=== PATIENT | male | born 1970 | race Caucasian/White ===

== ENCOUNTER 2018-09-30 10:30 | Emergency (ER) | payer OTHER ==
[2018-09-30] MEDS ORDERED: AZITHROMYCIN 250 MG TAB ONE (11:01)
--- NOTE | 2018-09-30 11:34 | EDPHYS ---
Physician Documentation [facility] Name: Cuong Laws Age: 48 yrs Sex: Male : 1970 Arrival Date: 09/30/2018 Time: 10:35 Bed 12 Private MD: ED Physician Jhony Hernandez HPI: 09/30 10:44 This 48 yrs old Male presents to ER via Ambulatory with complaints of Sinus leia Congestion, Cough. 10:44 The patient or guardian reports airway noise, cough, flu symptoms. Onset: The elia symptoms/episode began/occurred yesterday. Severity of symptoms: At their worst the symptoms were mild, moderate, in the emergency department the symptoms are unchanged. Modifying factors: The symptoms are alleviated by nothing, the symptoms are aggravated by nothing. Associated signs and symptoms: The patient has no apparent associated signs or symptoms. The patient has not experienced similar symptoms in the past. Historical: - Allergies: 10:39 No Known Allergies; sg - Home Meds: 10:39 None [Active]; sg - PMHx: 10:39 None; sg - PSHx: 10:39 Cholecystectomy; Knee surgery; sg - Immunization history:: Adult Immunizations not up to date. - Social history:: Smoking status: . - Family history:: not pertinent. - Ebola Screening: : Patient negative for fever greater than or equal to 101.5 degrees Fahrenheit, and additional compatible Ebola Virus Disease symptoms Patient denies exposure to infectious person Patient denies travel to an Ebola-affected area in the 21 days before illness onset No symptoms or risks identified at this time. ROS: 10:44 Constitutional: Negative for fever, chills, and weight loss, Eyes: Negative for injury, elia pain, redness, and discharge, ENT: Negative for injury, pain, and discharge, Neck: Negative for injury, pain, and swelling, Cardiovascular: Negative for chest pain, palpitations, and edema, Abdomen/GI: Negative for abdominal pain, nausea, vomiting, diarrhea, and constipation, Back: Negative for injury and pain, : Negative for injury, bleeding, discharge, and swelling, MS/Extremity: Negative for injury and deformity, Skin: Negative for injury, rash, and discoloration, Neuro: Negative for headache, weakness, numbness, tingling, and seizure, Psych: Negative for depression, anxiety, suicide ideation, homicidal ideation, and hallucinations, Allergy/Immunology: Negative for hives, rash, and allergies, Endocrine: Negative for neck swelling, polydipsia, polyuria, polyphagia, and marked weight changes, Hematologic/Lymphatic: Negative for swollen nodes, abnormal bleeding, and unusual bruising. 10:44 Respiratory: Positive for cough, with green sputum. Exam: 10:44 Constitutional: This is a well developed, well nourished patient who is awake, alert, elia and in no acute distress. Head/Face: Normocephalic, atraumatic. Eyes: Pupils equal round and reactive to light, extra-ocular motions intact. Lids and lashes normal. Conjunctiva and sclera are non-icteric and not injected. Cornea within normal limits. Periorbital areas with no swelling, redness, or edema. ENT: Nares patent. No nasal discharge, no septal abnormalities noted. Tympanic membranes are normal and external auditory canals are clear. Oropharynx with no redness, swelling, or masses, exudates, or evidence of obstruction, uvula midline. Mucous membranes moist. Neck: Trachea midline, no thyromegaly or masses palpated, and no cervical lymphadenopathy. Supple, full range of motion without nuchal rigidity, or vertebral point tenderness. No Meningismus. Chest/axilla: Normal chest wall appearance and motion. Nontender with no deformity. No lesions are appreciated. Cardiovascular: Regular rate and rhythm with a normal S1 and S2. No gallops, murmurs, or rubs. Normal PMI, no JVD. No pulse deficits. Respiratory: Lungs have equal breath sounds bilaterally, clear to auscultation and percussion. No rales, rhonchi or wheezes noted. No increased work of breathing, no retractions or nasal flaring. Abdomen/GI: Soft, non-tender, with normal bowel sounds. No distension or tympany. No guarding or rebound. No evidence of tenderness throughout. Back: No spinal tenderness. No costovertebral tenderness. Full range of motion. Skin: Warm, dry with normal turgor. Normal color with no rashes, no lesions, and no evidence of cellulitis. MS/ Extremity: Pulses equal, no cyanosis. Neurovascular intact. Full, normal range of motion. Neuro: Awake and alert, GCS 15, oriented to person, place, time, and situation. Cranial nerves II-XII grossly intact. Motor strength 5/5 in all extremities. Sensory grossly intact. Cerebellar exam normal. Normal gait. Psych: Awake, alert, with orientation to person, place and time. Behavior, mood, and affect are within normal limits. 10:44 Neck: ROM/movement: is normal, no acute changes, Meningeal signs: are not present, Kernig's sign is negative, Brudzinski's sign is negative. Vital Signs: 10:39 BP 146 / 83; Pulse 87; Resp 17 S; Pulse Ox 96% on R/A; Weight 113.4 kg; Height 6 ft. 2 sg in. (187.96 cm); Pain 3; 10:39 Temp 99.0(O); sg 10:39 Body Mass Index 32.10 (113.40 kg, 187.96 cm) MDM: 10:41 Patient medically screened. [facility] 10:45 Data reviewed: vital signs, nurses notes, lab test result(s). [facility] 09/30 10:44 Order name: Influenza Screen (a \T\ B) [facility] Administered Medications: 10:48 Drug: Zithromax 500 mg Route: PO; sg 11:57 Drug: Tamiflu 75 mg Route: PO; iw Disposition: 09/30/18 11:33 Discharged to Home. Impression: Cough, Acute upper respiratory infection, unspecified. - Condition is Stable. - Discharge Instructions: Upper Respiratory Infection, Adult, Upper Respiratory Infection, Adult, [id number], Cough, Adult, [id number], Cough, Adult. - Prescriptions for Hallie- D 12 Hour 60-120 mg Oral Tablet Sustained Release 12 hr - take 1 tablet by ORAL route every 12 hours As needed; 20 tablet. Guaifenesin AC 10- 100 mg/5 mL Oral Liquid - take 10 milliliters by ORAL route every 4 hours As needed; 180 milliliter. Zithromax 500 mg Oral Tablet - take 1 tablet by ORAL route once daily for 4 days; 4 tablet. Tamiflu 75 mg Oral Capsule - take 1 tablet by ORAL route every 12 hours for 5 days; 9 tablet. - Medication Reconciliation Form, Thank You Letter, Antibiotic Education, Prescription Opioid Use, Work release form form. - Follow up: Private Physician; When: 2 - 3 days; Reason: Recheck today's complaints, Continuance of care, Re-evaluation by your physician. - Problem is new. - Symptoms have improved. Signatures: Dispatcher [employer] EDStevie Mixon, RN RN Jhony Ruelas MD MD cha Williams, Irene RN RN iw Corrections: (The following items were deleted from the chart) 12:04 11:33 09/30/2018 11:33 Discharged to Home. Impression: Cough; Acute upper respiratory iw infection, unspecified. Condition is Stable. Discharge Instructions: Upper Respiratory Infection, Adult, Upper Respiratory Infection, Adult, [id number], Cough, Adult, [id number], Cough, Adult. Prescriptions for Hallie-D 12 Hour 60-120 mg Oral Tablet Sustained Release 12 hr - take 1 tablet by ORAL route every 12 hours As needed; 20 tablet, Zithromax 500 mg Oral Tablet - take 1 tablet by ORAL route once daily for 4 days; 4 tablet, Guaifenesin AC 10-100 mg/5 mL Oral Liquid - take 10 milliliters by ORAL route every 4 hours As needed; 180 milliliter. and Forms are Medication Reconciliation Form, Thank You Letter, Antibiotic Education, Prescription Opioid Use. Follow up: Private Physician; When: 2 - 3 days; Reason: Recheck today's complaints, Continuance of care, Re-evaluation by your physician. Problem is new. Symptoms have improved. elia
--- NOTE | 2018-09-30 11:34 | ER ---
Nurse's Notes [facility] Name: Cuong Laws Age: 48 yrs Sex: Male : 1970 Arrival Date: 09/30/2018 Time: 10:35 Bed 12 Private MD: Diagnosis: Cough;Acute upper respiratory infection, unspecified Presentation: 09/30 10:38 Presenting complaint: Patient states: Pt reports sinus congestion, headache and sg bodyaches for 3 days now, reports had similar symptoms, cough that is productive with green mucous, reports chills, denies N/V. Transition of care: patient was not received from another setting of care. Onset of symptoms was September 30, 2018. Risk Assessment: Do you want to hurt yourself or someone else? Patient reports no desire to harm self or others. Initial Sepsis Screen: Does the patient meet any 2 criteria? No. Patient's initial sepsis screen is negative. Does the patient have a suspected source of infection? No. Patient's initial sepsis screen is negative. Care prior to arrival: None. 10:38 Method Of Arrival: Ambulatory sg 10:38 Acuity: ROYER 4 sg Historical: - Allergies: 10:39 No Known Allergies; sg - Home Meds: 10:39 None [Active]; sg - PMHx: 10:39 None; sg - PSHx: 10:39 Cholecystectomy; Knee surgery; sg - Immunization history:: Adult Immunizations not up to date. - Social history:: Smoking status: . - Family history:: not pertinent. - Ebola Screening: : Patient negative for fever greater than or equal to 101.5 degrees Fahrenheit, and additional compatible Ebola Virus Disease symptoms Patient denies exposure to infectious person Patient denies travel to an Ebola-affected area in the 21 days before illness onset No symptoms or risks identified at this time. Screenin:40 Abuse screen: Denies threats or abuse. Denies injuries from another. Nutritional sg screening: No deficits noted. Tuberculosis screening: No symptoms or risk factors identified. Never had TB. Fall Risk None identified. Assessment: 10:40 General: Appears in no apparent distress. comfortable, well groomed, well developed, sg well nourished, Behavior is calm, cooperative, appropriate for age. Pain: Complains of pain in forehead, right cheek and left cheek, and bodyaches Quality of pain is described as aching. 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 Full function Speech is normal, Facial symmetry appears normal, Pupils are PERRLA, Reports headache. Cardiovascular: No deficits noted. Patient's skin is warm and dry. Chest pain is denied. Respiratory: Reports cough that is productive, Airway is patent Respiratory effort is even, unlabored, Respiratory pattern is regular, symmetrical, Breath sounds are clear. GI: No signs and/or symptoms were reported involving the gastrointestinal system. : No signs and/or symptoms were reported regarding the genitourinary system. EENT: Sclera/Cornea are clear in right eye and left eye Nares are clear bilaterally Oral mucosa is moist. Throat is clear Reports nasal congestion. Derm: No deficits noted. Musculoskeletal: No deficits noted. Vital Signs: 10:39 BP 146 / 83; Pulse 87; Resp 17 S; Pulse Ox 96% on R/A; Weight 113.4 kg; Height 6 ft. 2 sg in. (187.96 cm); Pain 3/10; 10:39 Temp 99.0(O); sg 10:39 Body Mass Index 32.10 (113.40 kg, 187.96 cm) sg ED Course: 10:35 Patient arrived in ED. mr 10:39 Triage completed. sg 10:39 Arm band placed on. sg 10:40 Flu and/or RSV swab sent to lab. sg 10:41 Jhony Hernandez MD is Attending Physician. [facility] 10:42 Stevie Ordoñez, RN is Primary Nurse. sg 10:50 Patient has correct armband on for positive identification. iw 12:00 No provider procedures requiring assistance completed. Patient did not have IV access iw during this emergency room visit. 12:04 Primary Nurse role handed off by Stevie Ordoñez, LUPE iw 12:04 Elza Pollock, LUPE is Primary Nurse. iw Administered Medications: 10:48 Drug: Zithromax 500 mg Route: PO; sg 11:57 Drug: Tamiflu 75 mg Route: PO; iw Outcome: 11:33 Discharge ordered by . elia 12:02 Discharged to home ambulatory. iw 12:02 Condition: good 12:02 Discharge instructions given to patient, Instructed on discharge instructions, follow up and referral plans. medication usage, Demonstrated understanding of instructions, follow-up care, medications, Prescriptions given X 4. 12:04 Patient left the ED. iw Signatures: Stevie Ordoñez RN RN sg Anderson, Corey, MD MD cha Rivera Shelly Elza Willams RN RN iw
[2018-09-30] MEDS ORDERED: OSELTAMIVIR 75 MG CAP ONE (11:50)
== END 2018-09-30 12:04 | disposition home or self-care (01) ==
LOC: ER 10:30
DX: J06.9 Acute upper respiratory infection, unspecified (principal)
CPT/HCPCS: 87804; 99283